=== PATIENT | female | born 1950 | race Caucasian/White ===

== ENCOUNTER → 2017-06-05 | Outpatient (CLI) | payer OTHER | LOC: FIMAGING 10:26 | PROVIDERS: ATTEND Internal Medicine Hematology & Oncology | DX: N64.4 Mastodynia (principal) ==

== ENCOUNTER 2018-08-24 10:56 | Inpatient (IN) | payer OTHER | END 2018-08-26 14:05 | disposition home or self-care (01) | LOC: F3E 15:08 ==

== ENCOUNTER → 2018-11-05 | Outpatient (CLI) | payer OTHER | LOC: FIMAGING 14:35 | DX: M51.36 Other intervertebral disc degeneration, lumbar region (principal); M48.061 Spinal stenosis, lumbar region without neurogenic claudication; M51.26 Other intervertebral disc displacement, lumbar region; M43.16 Spondylolisthesis, lumbar region; Z98.890 Other specified postprocedural states ==